=== PATIENT | male | born 1955 | race Caucasian/White ===

== ENCOUNTER 2017-04-24 15:18 | Emergency (ER) | payer BC ==
[2017-04-24] MEDS ORDERED: Meclizine TAB* 12.5 MG PO ONE (16:38)
--- NOTE | 2017-04-24 17:12 | RAD ---
INDICATION: Recent upper respiratory tract infection sinus discomfort and vertigo. COMPARISON: There are no prior studies available for comparison. TECHNIQUE: Contiguous axial sections of the axial images of the sinuses were obtained and reconstructed in the coronal and sagittal planes. FINDINGS: The frontal, maxillary and sphenoid sinuses all appear clear. There is mild mucosal thickening present bilaterally within the ethmoid air cells. The ostiomeatal complexes appear patent on both sides. The mastoid air cells appear clear. There is mild deviation of the nasal septum toward the right side. The nasal passageways were otherwise clear. IMPRESSION: MILD MUCOSAL THICKENING WITHIN THE ETHMOIDS AIR CELLS. THE SINUSES WERE OTHERWISE CLEAR.
[2017-04-24 17:56] VITALS: BP 123/97
--- NOTE | 2017-04-24 21:37 | ED ---
Billie Whipple Gabriel, scribed for Clive Harris MD on 04/24/17 at 1640 . Dizziness - HPI Summary HPI Summary: This patient is a 61 year old M presenting to [facility] accompanied by his with a chief complaint of dizziness since 12:00 today. Symptoms alleviated spontaneously. Patient reports chills, nasal discharge, sinus pressure, cough, diaphoresis, vomiting, and nausea. Patient was sent from [facility]. Patient had flu like symptoms 3 weeks ago and stopped smoking 4 weeks ago. - History Of Current Complaint Chief Complaint: EDDizziness Stated Complaint: CARDIC ISSUSE Time Seen by Provider: 04/24/17 16:21 Hx Obtained From: Patient Onset/Duration: Resolved Timing: Intermittent Episode Lasting Severity Initially: Moderate Severity Currently: None Alleviating Factor(s): Other - spontaneous Associated Signs And Symptoms: Positive: Other: - reports chills, nasal discharge, sinus pressure, cough, diaphoresis, vomiting, and nausea - Allergies/Home Medications Allergies/Adverse Reactions: Allergies Allergy/AdvReac Type Severity Reaction Status Date / Time No Known Allergies Allergy Verified 04/24/17 16:50 PMH/Surg Hx/FS Hx/Imm Hx Endocrine/Hematology History: Denies: Hx Diabetes Cardiovascular History: Denies: Hx Hypercholesterolemia, Hx Hypotension, Hx Hypertension, Hx Myocardial Infarction, Hx Pacemaker/ICD Respiratory History: Denies: Hx Chronic Obstructive Pulmonary Disease (COPD) GI History: Denies: Hx Ulcer History: Denies: Hx Acute Renal Failure Musculoskeletal History: Denies: Hx Arthritis Sensory History: Denies: Hx Cataracts, Hx Legally Blind Opthamlomology History: Denies: Hx Cataracts EENT History: Denies: Hx Deafness Neurological History: Denies: Hx CVA, Hx Dementia Infectious Disease History: No Infectious Disease History: Denies: Traveled Outside the [place] in Last 30 Days - Family History Known Family History: Negative: Hypertension Review of Systems Positive: Chills, Skin Diaphoresis Positive: Nasal Discharge, Other - sinus pressure Positive: Cough Positive: Vomiting, Nausea Neurological: Other - dizziness All Other Systems Reviewed And Are Negative: Yes Physical Exam - Summary Physical Exam Summary: Appearance: Well appearing, no pain distress Skin: warm, dry, reflects adequate perfusion Head/face: normal Eyes: EOMI, JOAN, No nystagmus ENT: Clear nasal discharge and nasal passage edema Neck: supple, non-tender Respiratory: CTA, breath sounds present Cardiovascular: RRR, pulses symmetrical Abdomen: non-tender, soft Bowel: present Musculoskeletal: normal, strength/ROM intact Neuro: normal, sensory motor intact, A&Ox3. Sissy-hallpike test is negative Triage Information Reviewed: Yes Vital Signs On Initial Exam: Initial Vitals Temp Pulse Resp BP Pulse Ox 98.3 F 79 18 133/65 97 04/24/17 15:22 04/24/17 15:22 04/24/17 15:22 04/24/17 15:22 04/24/17 15:22 Vital Signs Reviewed: Yes Diagnostics - Vital Signs Vital Signs Temp Pulse Resp BP Pulse Ox 04/24/17 15:22 98.3 F 79 18 133/65 97 - Laboratory Lab Statement: Any lab studies that have been ordered have been reviewed, and results considered in the medical decision making process. - CT CT sinus CT Interpretation Completed By: Radiologist - MILD MUCOSAL THICKENING WITHIN THE ETHMOIDS AIR CELLS. THE SINUSES WERE OTHERWISE CLEAR. ED physician has reviewed this radiology report. - EKG 15:32 Cardiac Rate: NL EKG Rhythm: Sinus Rhythm - at [address] Segment: Normal EKG Interpretation: normal axis, normal intervals, incomplete RBBB Re-Evaluation - Re-Evaluation First Eval Change: Improved - resolved. Dizzy Course/Dx - Course Course Of Treatment: pt with single short episode of vertigo after URI. Sinus CT neg. Tx with oral meds. Neg Hallpike. No neuro sx, all sx resolved now. Tx with meclizine and decongestant. - Diagnoses Differential Diagnosis/HQI/PQRI: Labyrinthitis Provider Diagnoses: Vertigo, Labyrinthitis, acute Discharge - Discharge Plan Condition: Good Disposition: HOME Prescriptions: Meclizine HCl [Meclizine 25] 25 mg PO Q6HR PRN #30 tab PRN Reason: Dizziness Patient Education Materials: Labyrinthitis (ED) Forms: *Work Release Referrals: [facility]FERR[facility] [Outside] No Primary Care Phys,NOPCP [Primary Care Provider] - Additional Instructions: Drink plenty of fluids. Decongestant such as Mucinex D may help. This is over the counter. Return if worse, new symptoms or other concerns as discussed. Do not drive until you know symptoms are gone. The documentation as recorded by the scribe, Wise,Eder accurately reflects the service I personally performed and the decisions made by me, Clive Harris MD.
== END 2017-04-24 17:56 | disposition home or self-care (01) ==
LOC: ED 15:18
DX: R42 Dizziness and giddiness (principal); H83.09 Labyrinthitis, unspecified ear; R05 Cough; R11.2 Nausea with vomiting, unspecified; R68.83 Chills (without fever)
CPT/HCPCS: 70486; 93005; 99282; A9270-GY

== ENCOUNTER 2018-08-11 11:59 | Inpatient (IN) | payer BC ==
--- NOTE | 2018-08-11 12:19 | ED ---
Shortness of Breath - HPI Summary HPI Summary: A 62 y/o male brought in by [facility] ambulance presents to [facility] with a chief complaint of SOB for the past week. He reports that he has been coughing up phlegm. When he went to his appointment today at [facility] where he claims his BP was low and he had a breathing problem. He went to [facility] today for his SOB and cough. He also reports loss of appetite, fatigue and weakness. He denies CP. He rates his pain as a 0/10 in severity. He claims that he can breathe lying down, but exertion aggravates his SOB. He also reports congestion and runny nose for the past 4-5 days. He denies taking breathing medications, but takes BP medications and thinks he has had side-effects of the medication. He is a former smoker, quitting 6-7 months ago. He smoked for about 30 years before hand. - History of Current Complaint Time Seen by Provider: 08/11/18 12:00 Hx Obtained From: Patient Onset/Duration: Sudden Onset, Lasting Days, Still Present Timing: Constant Current Severity: Mild Dyspnea At: Rest Aggrevating Factors: Movement Alleviating Factors: Nothing Associated Signs & Symptoms: Cough (Productive) - Allergy/Home Medications Allergies/Adverse Reactions: Allergies Allergy/AdvReac Type Severity Reaction Status Date / Time No Known Allergies Allergy Verified 04/24/17 16:50 Home Medications: Home Medications Lisinopril/HCTZ 02/06.5(NF) [Zestoretic 02/06.5(NF)] 1 tab PO DAILY 08/11/18 [ History Confirmed 08/11/18] PMH/Surg Hx/FS Hx/Imm Hx Endocrine/Hematology History: Denies: Hx Diabetes Cardiovascular History: Denies: Hx Hypercholesterolemia, Hx Hypotension, Hx Hypertension, Hx Myocardial Infarction, Hx Pacemaker/ICD Respiratory History: Denies: Hx Chronic Obstructive Pulmonary Disease (COPD) GI History: Denies: Hx Ulcer History: Denies: Hx Acute Renal Failure Musculoskeletal History: Denies: Hx Arthritis Sensory History: Denies: Hx Cataracts, Hx Legally Blind, Hx Deafness Opthamlomology History: Denies: Hx Cataracts, Hx Legally Blind Neurological History: Denies: Hx CVA, Hx Dementia Infectious Disease History: No Infectious Disease History: Denies: Traveled Outside the [place] in Last 30 Days - Family History Known Family History: Negative: Hypertension - Social History Alcohol Use: None Substance Use Type: Reports: None Smoking Status (MU): Heavy Every Day Tobacco Smoker Review of Systems Positive: Fatigue. Negative: Fever Negative: Chest Pain Positive: Shortness Of Breath, Cough Positive: Weakness All Other Systems Reviewed And Are Negative: Yes Physical Exam - Summary Physical Exam Summary: Appearance: The patient is well-nourished in no acute distress and in no acute pain. Skin: The skin is warm and dry and skin color reflects adequate perfusion. HEENT: The head is normocephalic and atraumatic. The pupils are equal and reactive. The conjunctivae are clear and without drainage. Nares are patent and without drainage. Mouth reveals moist mucous membranes and the throat is without erythema and exudate. The external ears are intact. The ear canals are patent and without drainage. The tympanic membranes are intact. Neck: The neck is supple with full range of motion and non-tender. There are no carotid bruits. There is no neck vein distension. Respiratory: Chest is non-tender. Decreased breath sounds in all lung leblanc, increased E/I ratio Cardiovascular: Heart is regular rate and rhythm. There is no murmur or rub auscultated. There is no peripheral edema and pulses are symmetrical and equal. Abdomen: The abdomen is soft and non-tender. There are normal bowel sounds heard in all four quadrants and there is no organomegaly palpated. Musculoskeletal: There is no back tenderness noted. Extremities are non-tender with full range of motion. There is good capillary refill. There is no peripheral edema or calf tenderness elicited. Neurological: Patient is alert and oriented to person, place and time. The patient has symmetrical motor strength in all four extremities. Cranial nerves are grossly intact. Deep tendon reflexes are symmetrical and equal in all four extremities. Psychiatric: The patient has an appropriate affect and does not exhibit any anxiety or depression. Triage Information Reviewed: Yes Vital Signs On Initial Exam: Initial Vitals Temp Pulse Resp BP Pulse Ox 98.5 F 78 16 108/58 100 08/11/18 12:02 08/11/18 12:02 08/11/18 12:02 08/11/18 12:08/11/18 12:02 Vital Signs Reviewed: Yes Diagnostics - Vital Signs Vital Signs Temp Pulse Resp BP Pulse Ox 08/11/18 12:02 98.5 F 78 16 108/58 100 - Laboratory Result Diagrams: 08/11/18 12:43 08/11/18 12:43 Lab Statement: Any lab studies that have been ordered have been reviewed, and results considered in the medical decision making process. - Radiology CXR Radiology Interpretation Completed By: Radiologist Summary of Radiographic Findings: NO ACTIVE CARDIOPULMONARY DISEASE IS NOTED. ED physician has reviewed this imaging report. - EKG 12:27 Cardiac Rate: NL - 68 bpm EKG Rhythm: Sinus Rhythm Summary of EKG Findings: Normal sinus rhythm at 68 bpm, RBBB Re-Evaluation - Re-Evaluation First Eval Re-Evaluation Time: 14:24 Change: Unchanged Comment: Discussed results Second Eval Re-Evaluation Time: 16:36 Change: Unchanged Comment: Discussed results and plan for admission. Course/Dx - Course Course Of Treatment: Mr. Charles was given a series of duo nebs here as well as Solu-Medrol and after some time he did state that he felt improved. That point I tried to ambulate him and he got tachycardic, tachypneic and began to complain of dizziness. His pulse ox only dropped to about 91% at that point. I didn't feel was safe to discharge him at that point and consult with the hospitalist for admission. I don't think there is any evidence for an acute infectious process. He has a long smoking history and I think this is catching up. - Diagnoses Provider Diagnoses: COPD exacerbation - Physician Notifications Discussed Care of Patient With: Michael Keita Time Discussed With Above Provider: 17:30 Instructed by Provider To: Admit As Inpatient Discharge - Sign-Out/Discharge Documenting (check all that apply): Patient Departure - admit Patient Received Moderate/Deep Sedation with Procedure: No - Discharge Plan Condition: Fair Disposition: ADMITTED TO [facility] Referrals: [facility] [Outside] - Billing Disposition and Condition Condition: FAIR Disposition: Admitted to [facility] - Attestation Statements Document Initiated by Scribe: Yes Documenting Scribe: Barry Escobar Provider For Whom Scribe is Documenting (Include Credential): Justin Moreno MD Scribe Attestation: IBarry, scribed for Justin Moreno MD on 08/11/18 at 1755. Scribe Documentation Reviewed: Yes Provider Attestation: The documentation as recorded by the scribe, Barry Escobar accurately reflects the service I personally performed and the decisions made by me, Justin Moreno MD Status of Scribe Document: Viewed
[2018-08-11] MEDS ORDERED: NS 0.9% 1000 ML** 1,000 ML IV ONE (12:21)
[2018-08-11] MEDS ORDERED: methylPREDNISolone 125 MG* 2 ML VIAL IV ONE (12:22)
[2018-08-11] MEDS ORDERED: Albuterol/Ipratropium NEB.SOL* Albuterol 2.5 MG/Ipratropium 0.5 MG 3 ML INH ONE ×2 (12:22→14:35)
[2018-08-11 13:09] LABS: ABS Basophils 0.1 10^3/ul (0-0.2); ABS Eosinophils 0.1 10^3/ul (0-0.6); ABS Lymphocytes 1.9 10^3/ul (1.0-4.8); ABS Monocytes 1.4 10^3/ul (0-0.8); ABS Neutrophils 10.7 10^3/ul (1.5-7.7); ABS Nucleated RBC 0 10^3/ul; Eosinophil % 0.6 %; Hematocrit 48 % (36-46); Lymphocyte % 13.7 %; Mean Corpuscular HGB Conc 33 g/dL (31-36); Mean Corpuscular Hemoglobin 33 pg (27-31); Mean Corpuscular Volume 98 fL (80-94); Mean Platelet Volume 7.8 fL (7.4-10.4); Nucleated Red Blood Cells % 0.1; Platelet Count 411 10^3/uL (150-450); Red Blood Count 4.92 10^6 /uL (4.18-5.48); Red Cell Distribution Width 13 % (10.5-15); White Blood Count 14.1 10^3/uL (3.5-10.8)
[2018-08-11 13:22] LABS: INR 1.11 (0.77-1.02)
[2018-08-11 13:26] LABS: Troponin I 0.01 ng/mL (<0.04)
[2018-08-11 13:31] LABS: Albumin 3.5 g/dL (3.2-5.2); Albumin/Globulin Ratio 0.9 (1-3); BUN/Creatinine Ratio 25.6 (8-20); C Reactive Protein 35.32 mg/L (<8.01); Calcium 9.6 mg/dL (8.6-10.3); EGFR African American 76.2 (>60); Potassium 4.4 mmol/L (3.5-5.0); Total Bilirubin 0.4 mg/dL (0.2-1.0); Total Protein 7.5 g/dL (6.4-8.9)
[2018-08-11] MEDS ORDERED: LACTATED RINGERS IVPB ONE (18:07)
[2018-08-11] MEDS ORDERED: Acetaminophen TAB* 325 MG PO PRN (18:22)
[2018-08-11] MEDS ORDERED: Albuterol/Ipratropium NEB.SOL* Albuterol 2.5 MG/Ipratropium 0.5 MG 3 ML INH PRN (18:22)
[2018-08-11] MEDS ORDERED: Al Hydrox/Mg Hydrox/Simet LIQ* 30 ML UDC PO PRN (18:22)
[2018-08-11] MEDS ORDERED: Albuterol HFA INHALER* 8 gm MDI INH PRN (18:28)
[2018-08-11] MEDS ORDERED: Enoxaparin(*) 40 MG/0.4 ML SYR SUBCUT SCH (19:00)
[2018-08-11 19:09] LABS: Influenza A Molecular NEGATIVE (Negative); Influenza B Molecular NEGATIVE (Negative)
[2018-08-11] MEDS: cefTRIAXone(*) 1 GM in NS 0.9% 50 ML* 50 ML IVPB SCH (21:00)
[2018-08-11] MEDS: Azithromycin 500 mg/250 ml NS 500 MG/250 ML BAG IVPB SCH (21:44)
--- NOTE | 2018-08-11 22:12 | HP ---
CC: Jerald Currie * HISTORY AND PHYSICAL: DATE OF ADMISSION: 08/11/18 PROVIDER: CÉSAR Curran. PRIMARY CARE PHYSICIAN: Jerald Currie. ATTENDING PHYSICIAN: Dr. Michael Keita * (dictated by CÉSAR Curran). CHIEF COMPLAINT: Shortness of breath and productive cough x1 week. HISTORY OF PRESENT ILLNESS: Melvin Charles is a 62-year-old white male with past medical history of hypertension who presents from [facility] office with shortness of breath, hypotension, and reports of cyanosis via EMS. The patient has been following up frequently with his PCP regarding his hypertension treatment. He has been started on lisinopril and hydrochlorothiazide and has been following up. The patient was not feeling well , including new shortness of breath, for the last week and made an appointment with his PCP today. The patient reportedly had a blood pressure of 76/41 in his primary care office and was appearing cyanotic. He was sent via EMS and brought to the emergency department, where he received 1 L of normal saline, 125 mg of intravenous methylprednisolone, and a DuoNeb. The patient was reportedly feeling better, but when he was ambulated by nursing staff, his shortness of breath worsened and was feeling dizzy. He was then given another DuoNeb. At the time of evaluation by myself, he reports that he is still feeling short of breath, which has been worsening over the last week. During the last week, he was experiencing a decreased appetite with fatigue as well as a productive cough. The sputum he is producing is "yellowish brown." He does not normally have a cough at baseline nor sputum production. He does additionally report that yesterday he experienced nausea and vomiting as well as the day prior. The patient denies fevers, chills, chest pain, hemoptysis, and diarrhea. He additionally denies dizziness, headache, and visual changes. ED COURSE: The patient received medications as described above. In the emergency department, his blood pressure was 86/54 with respiratory rate of 23, pulse rate of 76, and temperature of 98.5. He was 100% saturated on room air. The patient did receive 1 L of saline and blood pressure remained at 84/53 at the time of hospitalist evaluation. The hospitalists were asked to evaluate the patient for admission. PAST MEDICAL HISTORY: Hypertension. PAST SURGICAL HISTORY: Cataract surgery, bilaterally. HOME MEDICATIONS: 1. Lisinopril 10 mg p.o. daily. 2. Hydrochlorothiazide 12.5 mg p.o. daily. ALLERGIES: No known drug allergies. FAMILY HISTORY: Father at age 57; he is of pneumonia and emphysema. Mother in her 60s, unknown to patient, but possibly due to coronary artery disease. SOCIAL HISTORY: The patient is a retired maintenance scheduler. He is not and has 3 children. He lives with his ex-. He denies drug use and alcohol use. He quit smoking approximately 7 months ago and prior had a 30- year smoking history, which was approximately 1 to 1.5 packs per day. The patient lists his sister, Alisa Charles ([phone]), and his son, Bruce Charles ([phone]), as his surrogate medical decision makers should he need them. REVIEW OF SYSTEMS: An 11-point review of systems was completed and all pertinent positives and negatives are in the HPI, all other systems are negative. PHYSICAL EXAMINATION GENERAL: Thin white male, lying comfortably in hospital bed, appearing in no acute distress. HEENT: Eyes: Sclerae anicteric. Extraocular muscles intact. PERRL. ENT: Mucous membranes moist, edentulous. NECK: No JVD. Neck is supple without lymphadenopathy. RESPIRATORY: Chest expansion is equal with respirations. Lungs are clear to exam without rales, crackles, or wheezing. CARDIO: Regular rate and rhythm without murmurs, rubs, gallops. ABDOMEN: Soft, nontender, nondistended. EXTREMITIES: Hands are cold to the touch. No edema or calf tenderness. No cyanosis. NEUROLOGIC: Alert and oriented x3. No focal deficits. PSYCH: Pleasant and cooperative. DIAGNOSTIC STUDIES/LAB DATA: White blood cell count 14.1, hemoglobin 16, hematocrit 48, platelet count 411. Sodium 133, potassium 4.4, chloride 98, carbon dioxide 29, BUN 30, creatinine 1.17. Lactic acid 2.1, troponin 0.01. CRP 35.32. Chest x-ray on 08/11/18, no active cardiopulmonary disease is noted. EKG on 08/11/18, normal sinus rhythm, rate is 68 beats per minute, left bundle- branch block present, which is consistent with last EKG on 04/24/17, although new ST depressions in V1 and V2. ASSESSMENT AND PLAN: Melvin Charles is a 62-year-old white male with past medical history of hypertension who presents to the emergency department via EMS from his primary care provider's office, who reported patient appearing cyanotic and with hypotension as well as shortness of breath x1 week. The patient will be admitted in observation for: 1. Shortness of breath. Likely, there is some underlying undiagnosed chronic obstructive pulmonary disease given the patient's smoking history. His chest x- ray does appear with hyperinflated lungs and the patient does report some long- term intermittent shortness of breath leading up to this presentation. He will be treated with q.4 hour DuoNebs while awake and p.r.n. Ventolin will be ordered. Can consider adding Spiriva if patient is not improving. His O2 saturations have been 100% at rest and 94% with exertion and the patient is not requiring oxygen. He would benefit from PFTs outpatient after discharge; 40 mg of p.o. prednisone has been started. 2. Severe sepsis, likely secondary to pneumonia. While the patient's lungs do sound clear after receiving 2 DuoNebs and IV methylprednisolone in the emergency department, he does have an elevated white blood cell count, hypotension, and tachypnea as well as lactic acid elevated to 2.1, which does qualify him as severe sepsis. He does present with a clinical picture of pneumonia despite no x-ray findings. The patient has had increased sputum production, fatigue, and a productive cough with yellow-brown sputum. He was hypotensive despite receiving 1 L of fluids in the emergency department. A fluid bolus at 30 mL/kg of LR has been ordered. Empiric ceftriaxone and azithromycin has been ordered and lactic acid will be repeated in 4 hours. Blood cultures were already ordered in the emergency department. Additionally, sputum culture, legionella, and strep urine antigens have been ordered as well as influenza A and B. Patient has been afebrile and we will continue to monitor. 3. Hypertension. Because patient has been hypotensive, we will hold his home hydrochlorothiazide and lisinopril. We will consider restarting once hypotension has resolved. 4. EKG changes. Although the patient does have history of left bundle-branch block in the past, there appears to be some associated ST depression in leads V1 and V2. His troponins will be trended. Initial troponin was 0.01 in the emergency department. The patient is without chest pain. 5. FEN. The patient is to have a normal unrestricted diet. He is mildly hyponatremic, though we will continue to monitor without intervention at this time. The patient has received normal saline since this lab value was drawn. 6. Code status. Full code. 7. DVT prophylaxis. Lovenox 30 mg subcu. TIME SPENT: Approximately 1 hour was spent on this admission, approximately half this time was spent at bedside. This case has been reviewed by my attending, Dr. Michael Keita, and he agrees with this assessment and plan of care. CÉSAR CURRAN [id number]/CPS #: [id number] MTDD
[2018-08-11] MEDS: NS 0.9% 1000 ML** 1,000 ML IV SCH (23:26)
[2018-08-12 00:50] LABS: Urine Appearance Clear; Urine Bilirubin Negative (Negative); Urine Blood Negative (Negative); Urine Color Yellow; Urine Glucose 3+(>=500 mg/dL) (Negative); Urine Ketones Trace (Negative); Urine Nitrite Negative (Negative); Urine Protein Negative (Negative); Urine Specific Gravity 1.017 (1.010-1.030); Urine Urobilinogen Negative (Negative)
--- NOTE | 2018-08-12 03:56 | PN ---
Hospitalist Progress Note Date of Service: 08/12/18 CROSS COVER SEPSIS FOLLOW UP 62 yo M with persistent hypotension elevated lactate, presumed pulm source who presented this evening repeat lactic acid not clearing elevated at 3, repeat BP slightly soft 98/60 -Pt mentating qSOFA 0 -Repeat lactic acid ordered -Pt is making urine though will repeat BMP Clinically patient appears well though with persistent hypotension, lactic acid signs could have worsening end organ damage. Will monitor labs at 3AM and if worsening may transfer to ICU for pressor support and PICC placement in the morning
[2018-08-12 04:07] LABS: ABS Basophils 0.1 10^3/ul (0-0.2); ABS Eosinophils 0 10^3/ul (0-0.6); ABS Lymphocytes 1.3 10^3/ul (1.0-4.8); ABS Monocytes 0.9 10^3/ul (0-0.8); ABS Neutrophils 11.4 10^3/ul (1.5-7.7); ABS Nucleated RBC 0 10^3/ul; Eosinophil % 0.1 %; Hematocrit 37 % (36-46); Hemoglobin 12.4 g/dL (14.0-18.0); Lymphocyte % 9.7 %; Mean Corpuscular HGB Conc 34 g/dL (31-36); Mean Corpuscular Hemoglobin 33 pg (27-31); Mean Corpuscular Volume 97 fL (80-94); Mean Platelet Volume 7.3 fL (7.4-10.4); Nucleated Red Blood Cells % 0; Platelet Count 355 10^3/uL (150-450); Red Blood Count 3.83 10^6 /uL (4.18-5.48); Red Cell Distribution Width 13 % (10.5-15); White Blood Count 13.7 10^3/uL (3.5-10.8)
[2018-08-12 04:25] LABS: BUN/Creatinine Ratio 31.1 (8-20); Calcium 8.8 mg/dL (8.6-10.3); EGFR African American 103.1 (>60); EGFR Non-African American 85.2 (>60); Potassium 4.8 mmol/L (3.5-5.0)
[2018-08-12] MEDS: predniSONE TAB* 20 MG PO SCH (07:54)
[2018-08-12] MEDS: NS 0.9% 1000 ML** 1,000 ML IV SCH (07:54)
--- NOTE | 2018-08-12 10:17 | PN ---
Subjective Date of Service: 08/12/18 Interval History: Patient reports his shortness of breath and cough are improved today. He does continue to cough but he reports it is less frequent, he's producing less sputum , and his sputum is now clear (previously yellow-brown). He denies chest pain, abd pain, n/v/d, headache. Objective Active Medications: Acetaminophen (Tylenol Tab*) 650 mg PO Q4H PRN PRN Reason: FEVER/PAIN Al Hydrox/Mg Hydrox/Simethicone (Maalox Plus*) 30 ml PO Q6H PRN PRN Reason: INDIGESTION Albuterol (Ventolin Hfa Inhaler*) 2 puff INH Q4H PRN PRN Reason: SOB/WHEEZING Albuterol/Ipratropium (Duoneb (Albuterol 2.5 Mg/Ipratropium 0.5 Mg)) 1 neb INH [id number] AWAKE PRN PRN Reason: sob/wheexing Enoxaparin Sodium (Lovenox(*)) 40 mg SUBCUT Q24H [facility] Last Admin: 08/11/18 21:43 Dose: 40 mg Azithromycin (Zithromax 500 Mg/250 Ml) 500 mg in 250 mls @ 250 mls/hr IVPB Q24H [facility] Last Admin: 08/11/18 21:44 Dose: 250 mls/hr Ceftriaxone Sodium 1 gm/ (Sodium Chloride) 50 mls @ 200 mls/hr IVPB Q24H [facility] Last Admin: 08/11/18 21:00 Dose: 200 mls/hr Sodium Chloride (Ns 0.9% 1000 Ml) 1,000 mls @ 125 mls/hr IV PER RATE [facility] Last Admin: 08/12/18 07:54 Dose: 125 mls/hr Prednisone (Deltasone Tab*) 40 mg PO DAILY [facility] Last Admin: 08/12/18 07:54 Dose: 40 mg Vital Signs - 8 hr 08/12/18 03:15 Temperature 98.6 F Pulse Rate 62 Respiratory 20 Rate Blood Pressure 104/54 (mmHg) O2 Sat by Pulse 98 Oximetry Oxygen Devices in Use Now: None Appearance: Thin, elderly male who appears older than stated age, laying comfortably in hospital bed, appearing in NAD Eyes: No Scleral Icterus, PERRLA Ears/Nose/Mouth/Throat: Mucous Membranes Moist, - - Edentulous Neck: - - Neck is supple and without JVD Respiratory: Symmetrical Chest Expansion and Respiratory Effort, Clear to Auscultation Cardiovascular: NL Sounds; No Murmurs; No JVD, RRR Abdominal: - - abdomen is soft, nontender, nondistended Extremities: No Edema, No Clubbing, Cyanosis Skin: No Rash or Ulcers Neurological: Alert and Oriented x 3, NL Muscle Strength and Tone Result Diagrams: 08/12/18 04:00 08/12/18 04:00 Microbiology and Other Data: Microbiology 08/12/18 00:00 Legionella Urinary Antigen - Final Urine Negative Legionella Antigen Streptococcus pneumoniae Ag Screen - Final Negative S. pneumo Antigen Assess/Plan/Problems-Billing Assessment: 62 yo white male with PMHx HTN presents via EMS from his PCP office with reports of cyanosis and hypotension with systolics in the 70s in the office. C/ o approx 1 week of fatigue, productive cough with yellow-brown phlegm, and worsening shortness of breath. - Patient Problems (1) Pneumonia Code(s): J18.9 - PNEUMONIA, UNSPECIFIED ORGANISM SNOMED Code(s): 209200477 Comment: -sputum production decreased and color has turned to clear since yesterday -clinical presentation of pneumonia despite chest xray without evidence; productive cough, leukocytosis, elevated lactic acid -evidence of complication by severe sepsis as discussed below -continue IV ceftriaxone and azithromycin -influenza negative, strep negative, legionella negative -awating sputum culture, pt has been unable to provide sample since admission (2) Severe sepsis Code(s): A41.9 - SEPSIS, UNSPECIFIED ORGANISM; R65.20 - SEVERE SEPSIS WITHOUT SEPTIC SHOCK SNOMED Code(s): 91444887 Comment: -patient hypotensive with SBP in 80s in ED; BP without improvement after 30ml/ kg LR bolus after 6 hours, MAP <65; overnight started on 125ml/hr continuous NS and MAP improved; BP today 111/82 -will continue IVF and continue to monitor BP -lactic acid peaked at 3.1 -> 1.4 today -treating with ceftriaxone and azithromycin as described above (3) COPD exacerbation Code(s): J44.1 - CHRONIC OBSTRUCTIVE PULMONARY DISEASE W (ACUTE) EXACERBATION SNOMED Code(s): 025983067 Comment: -SOB improved today per patient; O2 sat 98% on RA, lungs clear on exam -although patient does not previously have diagnosis of COPD, though reportedly he has only recently begun seeing his PCP and was with poor follow up prior -CXR with evidence of hyperinflation and patient has 30+ year smoking history -exacerbation likely caused by pneumonia -continue prednisone, scheduled nebulizers and prn ventolin -patient would benefit from outpatient PFTs to confirm COPD diagnosis (4) Hypertension Code(s): I10 - ESSENTIAL (PRIMARY) HYPERTENSION SNOMED Code(s): 92566094 Comment: -holding home hctz and lisinopril in setting of hypotension due to severe sepsis (5) DVT prophylaxis Code(s): VJX1287 - SNOMED Code(s): 992593594 Comment: -continue lovenox (6) Full code status Code(s): Z78.9 - OTHER SPECIFIED HEALTH STATUS SNOMED Code(s): 223951940
[2018-08-12] MEDS ORDERED: Enoxaparin(*) 40 MG/0.4 ML SYR SUBCUT SCH (21:00)
[2018-08-12] MEDS: cefTRIAXone(*) 1 GM in NS 0.9% 50 ML* 50 ML IVPB SCH (21:05)
[2018-08-12] MEDS: Azithromycin 500 mg/250 ml NS 500 MG/250 ML BAG IVPB SCH (21:33)
[2018-08-13 06:34] LABS: ABS Basophils 0 10^3/ul (0-0.2); ABS Eosinophils 0 10^3/ul (0-0.6); ABS Lymphocytes 2.5 10^3/ul (1.0-4.8); ABS Monocytes 1.1 10^3/ul (0-0.8); ABS Neutrophils 9.8 10^3/ul (1.5-7.7); ABS Nucleated RBC 0 10^3/ul; Eosinophil % 0.3 %; Hematocrit 37 % (36-46); Hemoglobin 12.5 g/dL (14.0-18.0); Lymphocyte % 18.5 %; Mean Corpuscular HGB Conc 34 g/dL (31-36); Mean Corpuscular Hemoglobin 33 pg (27-31); Mean Corpuscular Volume 97 fL (80-94); Mean Platelet Volume 7.6 fL (7.4-10.4); Nucleated Red Blood Cells % 0.1; Platelet Count 336 10^3/uL (150-450); Red Blood Count 3.83 10^6 /uL (4.18-5.48); Red Cell Distribution Width 13 % (10.5-15); White Blood Count 13.4 10^3/uL (3.5-10.8)
[2018-08-13 06:53] LABS: BUN/Creatinine Ratio 24.7 (8-20); EGFR African American 99.3 (>60); EGFR Non-African American 82.1 (>60); Potassium 4.1 mmol/L (3.5-5.0)
[2018-08-13 08:07] VITALS: BP 137/73
[2018-08-13] MEDS: predniSONE TAB* 20 MG PO SCH (08:16)
--- NOTE | 2018-08-13 23:38 | DS ---
CC: Dr. Dav Salazar * DISCHARGE SUMMARY: DATE OF ADMISSION: 08/11/18 DATE OF DISCHARGE: 08/13/18 PROVIDER: CÉSAR Curran. ATTENDING PHYSICIAN: Dr. Carine Friend * (dictated by CÉSAR Curran). PRIMARY CARE PROVIDER: Dr. Dav Salazar. PRIMARY DIAGNOSES: 1. Pneumonia. 2. Chronic obstructive pulmonary disease exacerbation. 3. Severe sepsis secondary to pneumonia. SECONDARY DIAGNOSIS: Hypertension. STUDIES: Chest x-ray on 08/11/18, impression: "No active cardiopulmonary disease is note." It is of my interpretation that the patient has hyperinflated lungs. EKG on 08/11/18, normal sinus rhythm, rate 68 beats per minute, left bundle- branch block, which is consistent with bundle branch block on EKG on 04/24/17. PERTINENT LAB DATA: White blood cell count at admission 14.1. Lactic acid at admission 2.1, lactic acid on 08/11/18 approximately at the time of 2000, 3.7, and then on 08/12/18 at approximately 6 a.m., lactic acid of 1.4. BUN of 30 and creatinine of 1.7 on admission. Troponin 0.1 and then 0.00 x2. Urinalysis with +3 glucose and trace ketones, influenza A negative, influenza B negative. DISCHARGE MEDICATIONS: 1. Albuterol inhaler 2 puffs inhaled q.4 hours p.r.n. 2. Azithromycin 250 mg p.o. daily x2 days. 3. Cefdinir 300 mg p.o. q.12 hours x5 days. 4. Lisinopril 10 mg p.o. daily. 5. Prednisone 30 mg x3 days, 20 mg x3 days, 10 mg x3 days. Continued home medications: None. HISTORY OF PRESENT ILLNESS/HOSPITAL COURSE: Melvin Charles is a 62-year-old white male with past medical history of hypertension, who presents from his primary care office via EMS due to blood pressure systolic in the 70s and appearing cyanotic per report. When the patient arrived to the emergency department, he was given a liter of normal saline, IV Solu-Medrol, and DuoNeb. He was experiencing shortness of breath and feeling dizzy. Additionally, he had noted that for the last approximate week he was having decreased appetite and fatigue and a productive cough producing yellow to brown sputum. Additionally, he had experienced nausea and vomiting the day prior. In the emergency department, the patient had a blood pressure of 86/54, and after receiving 1 L of normal saline, his blood pressure remained 84/53. At the time of hospitalist evaluation, the patient was diagnosed with severe sepsis secondary to likely pneumonia given his clinical presentation. He was given a fluid bolus, empiric therapy with IV ceftriaxone and azithromycin, and then started on oral prednisone and scheduled DuoNeb for treatment of his COPD exacerbation, although the patient does not carry a prior history of COPD given his extensive history of smoking, from which he quit 6 to 7 months ago. He does have hyperinflated lungs on chest x-ray consistent with COPD. Approximately 6 hours after admission, he was reevaluated to assess his blood pressure and was found to still be hypotensive and given additional fluid boluses. At that time, his lactic acid had elevated to 3.7. An additional fluid bolus was given and he did become normotensive. This was occurring overnight, and the following morning, his blood pressure was stabilized and his lactic acid did decrease to 1.4. The following day, his blood pressure was monitored and the patient was feeling clinically improved. On the date of discharge, the patient was feeling well. He was still producing sputum, though the color was clear and the cough was less frequent. He did no longer have shortness of breath and he denied chest pain, abdominal pain, nausea, vomiting, and diarrhea. The patient did report that his appetite had improved. On the date of discharge, the patient ambulated on room air and maintained oxygen over 94% oxygen saturation. During his hospitalization, for treatment of his hypertension given the setting of his hypotension due to severe sepsis, initially his home hydrochlorothiazide and lisinopril were held and his highest blood pressure was systolic of 148 once. REVIEW OF SYSTEMS: All pertinent positives and negatives are above in the HPI. All other systems are negative. PHYSICAL EXAMINATION: A thin elderly white male, who appears older than his stated age and lying comfortably in his hospital bed, appearing in no acute distress. Head: Normocephalic, atraumatic. Eyes: PERRL, sclerae anicteric. EOMI. ENT: Mucous membranes are moist. Neck: Supple, without JVD. Cardio: Regular rate and rhythm without murmurs, rubs, or gallops. Lungs: Clear to auscultation throughout. Abdomen: Soft, nontender, nondistended. Extremities : Extremities are thin and edematous without calf tenderness and cyanosis. Neuro: Alert and oriented x3. No focal deficits. Psych: The patient is pleasant and cooperative, not responding to internal stimuli. DISCHARGE PLAN: Diet: The patient is to return to regular diet. Activity: The patient is to return to normal activity as tolerated. The patient was advised to follow up with his primary care within 1 week for follow up regarding this hospitalization. He is to continue his antibiotics cefdinir for 5 days and azithromycin for 2 days as directed and to completion. For further treatment of his COPD exacerbation, he is to continue with the prednisone taper as prescribed. He was provided with a Ventolin inhaler for p.r.n. shortness of breath or wheezing. Given that the patient's blood pressure was only elevated to systolic in the 140s once during his admission without receiving antihypertensives, I suggested the patient discontinue his combination hydrochlorothiazide and lisinopril home medication and I prescribed lisinopril 10 mg p.o. daily. The patient was advised to follow up with his PCP regarding his blood pressure and attempt to check his blood pressure at home prior to following up with his primary care provider. It is recommended that the patient have pulmonary function testing to confirm diagnosis of COPD when the patient is stable. The patient was advised to return to the emergency department if he was experiencing fevers or chills, shortness of breath, difficulty breathing or chest pain. CONDITION ON DISCHARGE: Stable. TIME SPENT: Approximately 45 minutes were spent on this discharge, approximately half this time was spent at bedside. CÉSRA CURRAN [id number]/CPS #: [id number]
== END 2018-08-13 14:20 | disposition home or self-care (01) | DRG 720 ==
LOC: ED 11:59 → MED 18:22 → OBSVTOIN 08-12 14:00
PROVIDERS: ADMIT Internal Medicine; ATTEND Internal Medicine
DX: A41.9 Sepsis, unspecified organism (principal); J18.9 Pneumonia, unspecified organism; J44.1 Chronic obstructive pulmonary disease with (acute) exacerbation; J44.0 Chronic obstructive pulmonary disease with (acute) lower respiratory infection; E87.1 Hypo-osmolality and hyponatremia; R65.20 Severe sepsis without septic shock; I44.7 Left bundle-branch block, unspecified; F17.200 Nicotine dependence, unspecified, uncomplicated; I10 Essential (primary) hypertension; Z98.42 Cataract extraction status, left eye; Z98.41 Cataract extraction status, right eye; Z83.6 Family history of other diseases of the respiratory system; Z82.49 Family history of ischemic heart disease and other diseases of the circulatory system; Z87.891 Personal history of nicotine dependence
CPT/HCPCS: 36415; 71045; 80048; 80053; 81003; 83605; 84484; 85025; 85610; 86140; 87040; 87899; 93005; 99284; A9270-GY; J0456; J0696; J1650; J2930; J7512

== ENCOUNTER 2018-08-19 12:04 | Emergency (ER) | payer BC ==
--- NOTE | 2018-08-19 17:49 | ED ---
Complex/Multi-Sys Presentation - HPI Summary HPI Summary: A 62 y/o male presents to [facility] with a chief complaint of low blood pressure. 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 The patient was at a follow up appointment at [facility] when it was found that he had low BP so Dr. Salazar referred him to the ED. He denies any CP. The patient was admitted last week for four days for PNA. He claims that he was then put on a different BP medication. His BP was stable upon arrival. - History Of Current Complaint Chief Complaint: EDGeneral Time Seen by Provider: 08/19/18 17:26 Hx Obtained From: Patient Onset/Duration: Sudden Onset, Lasting Minutes, Resolved Timing: Constant, Hours Severity Currently: None Severity Initially: Mild Location: Negative Character: Unable To Describe Aggravating Factor(s): nothing Alleviating Factor(s): nothing Associated Signs And Symptoms: Positive: SOB - PRODUCT INFO SPECIALIST. Negative: Fever - Allergies/Home Medications Allergies/Adverse Reactions: Allergies Allergy/AdvReac Type Severity Reaction Status Date / Time No Known Allergies Allergy Verified 08/19/18 12:11 Home Medications: Home Medications Lisinopril TAB* [Prinivil TAB*] 10 mg PO DAILY 08/19/18 [History Confirmed 08/19] PMH/Surg Hx/FS Hx/Imm Hx Endocrine/Hematology History: Denies: Hx Diabetes Cardiovascular History: Denies: Hx Hypercholesterolemia, Hx Hypotension, Hx Hypertension, Hx Myocardial Infarction, Hx Pacemaker/ICD Respiratory History: Denies: Hx Chronic Obstructive Pulmonary Disease (COPD) GI History: Denies: Hx Ulcer History: Denies: Hx Acute Renal Failure Musculoskeletal History: Denies: Hx Arthritis Sensory History: Denies: Hx Cataracts, Hx Contacts or Glasses, Hx Legally Blind, Hx Deafness, Hx Hearing Aid Opthamlomology History: Denies: Hx Cataracts, Hx Contacts or Glasses, Hx Legally Blind Neurological History: Denies: Hx CVA, Hx Dementia Infectious Disease History: No Infectious Disease History: Denies: Traveled Outside the [place] in Last 30 Days - Family History Known Family History: Negative: Hypertension - Social History Alcohol Use: None Substance Use Type: Reports: None Smoking Status (MU): Former Smoker Type: Cigarettes Review of Systems Negative: Fever Positive: Other - positive: low BP Positive: Shortness Of Breath All Other Systems Reviewed And Are Negative: Yes Physical Exam - Summary Physical Exam Summary: Appearance: Well appearing, no pain distress Skin: warm, dry, reflects adequate perfusion Head/face: normal Eyes: EOMI, JOAN ENT: normal Neck: supple, non-tender Respiratory: CTA, breath sounds present Cardiovascular: RRR, pulses symmetrical Abdomen: non-tender, soft Musculoskeletal: normal, strength/ROM intact Neuro: normal, sensory motor intact, A&Ox3 Triage Information Reviewed: Yes Vital Signs On Initial Exam: Initial Vitals Temp Pulse Resp BP Pulse Ox 98.2 F 78 18 105/65 99 08/19/18 12:06 08/19/18 12:06 08/19/18 12:06 08/19/18 12:06 08/19/18 12:06 Vital Signs Reviewed: Yes Diagnostics - Vital Signs Vital Signs Temp Pulse Resp BP Pulse Ox 08/19/18 16:20 98.2 F 78 16 109/60 97 08/19/18 14:05 99.4 F 80 17 102/59 97 08/19/18 12:06 98.2 F 78 18 105/65 99 - Laboratory Result Diagrams: 08/19/18 18:01 08/19/18 18:01 Lab Statement: Any lab studies that have been ordered have been reviewed, and results considered in the medical decision making process. - Radiology CXR Radiology Interpretation Completed By: Radiologist Summary of Radiographic Findings: HYPERINFLATED LUNG MARINELLI WITH NO DEFINITE PNEUMONIA. ED physician has reviewed this imaging report. - EKG 17:52 Cardiac Rate: NL - 68 bpm EKG Rhythm: Sinus Rhythm Summary of EKG Findings: NSR at 68 bpm, RBBB. Re-Evaluation - Re-Evaluation First Eval Re-Evaluation Time: 19:15 Change: Unchanged Comment: Discussed results and plan for DC. Complex Multi-Symp Course/Dx Course Of Treatment: A 62 y/o male presents to [facility] with a chief complaint of low blood pressure. The physical exam was unremarkable. CXR impression: HYPERINFLATED LUNG MARINELLI WITH NO DEFINITE PNEUMONIA. EKG showed NSR at 68 bpm, RBBB. Bloodwork and chemistries obtained. Pt advised not to take HTN medications and see his PCP as soon as possible. White cell count likely elevated due to him being on steriods. The patient is agreeable with this plan. - Diagnoses Differential Diagnoses/HQI/PQRI: Metabolic Abnormality, Other - hypertension Provider Diagnoses: History of hypertension Discharge - Sign-Out/Discharge Documenting (check all that apply): Patient Departure - DC Patient Received Moderate/Deep Sedation with Procedure: No - Discharge Plan Condition: Stable Disposition: HOME Referrals: Dav Salazar DO [Primary Care Provider] - As Soon As Possible Additional Instructions: Return to the ED if you experience any new or worsening symptoms. - Billing Disposition and Condition Condition: STABLE Disposition: Home - Attestation Statements Document Initiated by Scribe: Yes Documenting Scribe: Barry Escobar Provider For Whom Scribe is Documenting (Include Credential): Turner Carson MD Scribe Attestation: Barry Whipple, scribed for Turner Carson MD on 08/20/18 at 1038. Scribe Documentation Reviewed: Yes Provider Attestation: The documentation as recorded by the Barry lee accurately reflects the service I personally performed and the decisions made by , Turner Carson MD Status of Scribe Document: Viewed
[2018-08-19 18:14] LABS: ABS Basophils 0.2 10^3/ul (0-0.2); ABS Eosinophils 0.1 10^3/ul (0-0.6); ABS Lymphocytes 1.9 10^3/ul (1.0-4.8); ABS Monocytes 0.9 10^3/ul (0-0.8); ABS Neutrophils 12.6 10^3/ul (1.5-7.7); ABS Nucleated RBC 0 10^3/ul; Eosinophil % 0.3 %; Hematocrit 42 % (36-46); Hemoglobin 14.1 g/dL (14.0-18.0); Mean Corpuscular HGB Conc 33 g/dL (31-36); Mean Corpuscular Hemoglobin 33 pg (27-31); Mean Corpuscular Volume 99 fL (80-94); Mean Platelet Volume 7.1 fL (7.4-10.4); Nucleated Red Blood Cells % 0; Platelet Count 429 10^3/uL (150-450); Red Blood Count 4.27 10^6 /uL (4.18-5.48); Red Cell Distribution Width 14 % (10.5-15); White Blood Count 15.6 10^3/uL (3.5-10.8)
[2018-08-19 18:35] LABS: Albumin 3.3 g/dL (3.2-5.2); Albumin/Globulin Ratio 1.1 (1-3); BUN/Creatinine Ratio 37.1 (8-20); Calcium 9.3 mg/dL (8.6-10.3); EGFR African American 86.3 (>60); EGFR Non-African American 71.3 (>60); Globulin 3.1 g/dL (2-4); Total Bilirubin 0.2 mg/dL (0.2-1.0); Total Protein 6.4 g/dL (6.4-8.9); Troponin I 0.01 ng/mL (<0.04)
[2018-08-19 18:37] LABS: Potassium 5.3 mmol/L (3.5-5.0)
[2018-08-19 19:31] VITALS: BP 100/57
== END 2018-08-19 19:34 | disposition home or self-care (01) ==
LOC: ED 12:04
DX: I10 Essential (primary) hypertension (principal); I45.10 Unspecified right bundle-branch block; Z79.899 Other long term (current) drug therapy; Z87.891 Personal history of nicotine dependence
CPT/HCPCS: 36415; 71045; 80053; 84484; 85025; 93005; 99283